=== PATIENT | male | born 1950 | race Caucasian/White ===

== ENCOUNTER 2018-07-30 08:21 | Day surgery (SDC) | payer MEDICARE, OTHER, SELFPAY ==
[2018-07-30] MEDS ORDERED: DIPRIVAN 200 MG/20 ML IV ONE (08:22)
[2018-07-30] MEDS ORDERED: Depo-Medrol 40 MG/ML IM ONE (08:22)
[2018-07-30] MEDS ORDERED: Xylocaine-Mpf 2% 5 Ml Vial IJ ONE (08:22)
--- NOTE | 2018-07-30 12:15 | XRAY ---
Indication: Bilateral L4-S1 MBB. Intraoperative fluoroscopy was provided for 22 seconds. Single digital spot image submitted for interpretation demonstrates posterior spinal needle tips along the expected course of the left and right L4-S1 nerve roots. Correlate with intraoperative findings/report.
--- NOTE | 2018-07-30 14:44 | XRAY ---
22 seconds fluoroscopy time in surgery for bilateral L4-S1 MBB.
[2018-07-30] MEDS ORDERED: Lactated Ringers 1,000 ML IV ONE (14:58)
== END 2018-07-30 10:48 | disposition home or self-care (01) ==
LOC: SDC-PAIN 08:21
PROVIDERS: ATTEND Psychiatry & Neurology Pain Medicine
DX: M47.816 Spondylosis without myelopathy or radiculopathy, lumbar region (principal); M47.817 Spondylosis without myelopathy or radiculopathy, lumbosacral region; E11.9 Type 2 diabetes mellitus without complications; Z79.84 Long term (current) use of oral hypoglycemic drugs
CPT/HCPCS: 64493; 64494; 72020; 77002; 82962; 99100; J1030; J2704

== ENCOUNTER 2018-08-20 08:31 | Day surgery (SDC) | payer MEDICARE, OTHER ==
[2018-08-20] MEDS ORDERED: Xylocaine 1% Vial 30 ML PF IJ ONE (08:32)
[2018-08-20] MEDS ORDERED: Ketamine HCl 50 MG/ML IJ ONE (08:32)
[2018-08-20] MEDS ORDERED: Depo-Medrol 40 MG/ML IM ONE (08:32)
[2018-08-20] MEDS ORDERED: Marcaine 0.5% SDV 10 ML IJ ONE (08:32)
[2018-08-20] MEDS ORDERED: Sodium Chloride 0.9(Preservative Free) 10 ML IJ ONE (08:32)
[2018-08-20] MEDS ORDERED: DIPRIVAN 200 MG/20 ML IV ONE (08:32)
--- NOTE | 2018-08-20 12:11 | XRAY ---
34 seconds fluoroscopy time in surgery for right L4-S1 TREY and right S-I joint injection.
--- NOTE | 2018-08-20 12:35 | XRAY ---
Indication: Right L4-S1 TREY. Intraoperative fluoroscopy was provided for 14 seconds. 2 digital spot images submitted for interpretation demonstrates posterior spinal needle tip projecting over the expected course the right L5 nerve root. Small amount of contrast injected for needle tip placement. Correlate with intraoperative findings/report.
--- NOTE | 2018-08-20 14:10 | XRAY ---
34 seconds fluoroscopy time in surgery for right L4-S1 TREY and right S-I joint injection.
[2018-08-20] MEDS ORDERED: Lactated Ringers 1,000 ML IV ONE (14:28)
--- NOTE | 2018-08-25 09:43 | XRAY ---
Indication: Right SI joint injection. Intraoperative fluoroscopy was provided for 14 seconds. 2 digital spot images submitted for interpretation demonstrates posterior spinal needle tip projecting over the inferior right SI joint. Small amount of contrast injected for needle tip placement. Correlate with intraoperative findings/report.
== END 2018-08-20 11:12 | disposition home or self-care (01) ==
LOC: SDC-PAIN 08:31
PROVIDERS: ATTEND Psychiatry & Neurology Pain Medicine
DX: M54.16 Radiculopathy, lumbar region (principal); M53.3 Sacrococcygeal disorders, not elsewhere classified; E11.9 Type 2 diabetes mellitus without complications; G62.9 Polyneuropathy, unspecified; Z79.899 Other long term (current) drug therapy
CPT/HCPCS: 64483; 64484; 72020; 72202; 77002; 82962; G0260; 27096; 99100; J1030; J2001; J2704; Q9966

== ENCOUNTER 2018-09-24 07:52 | Day surgery (SDC) | payer MEDICARE, OTHER ==
[2018-09-24] MEDS ORDERED: Ketamine HCl 50 MG/ML IJ ONE (07:53)
[2018-09-24] MEDS ORDERED: Depo-Medrol 40 MG/ML IM ONE (07:53)
[2018-09-24] MEDS ORDERED: Marcaine 0.5% SDV 10 ML IJ ONE (07:53)
[2018-09-24] MEDS ORDERED: DIPRIVAN 200 MG/20 ML IV ONE (07:53)
--- NOTE | 2018-09-24 11:15 | XRAY ---
Indication: Bilateral L4-S1 MBB. Intraoperative fluoroscopy was provided for 21 seconds. Single digital spot image submitted for interpretation demonstrates posterior needle tips projecting over the expected course of the left and right L4-S1 nerve roots. Correlate with intraoperative findings/report.
--- NOTE | 2018-09-24 11:27 | XRAY ---
21 seconds fluoroscopy time in surgery for bilateral L4-S1 MBB.
[2018-09-24] MEDS ORDERED: Lactated Ringers 2,000 ML IV ONE (13:02)
== END 2018-09-24 10:31 | disposition home or self-care (01) ==
LOC: SDC-PAIN 07:52
PROVIDERS: ATTEND Psychiatry & Neurology Pain Medicine
DX: M47.816 Spondylosis without myelopathy or radiculopathy, lumbar region (principal); Z79.899 Other long term (current) drug therapy; E11.9 Type 2 diabetes mellitus without complications; C61 Malignant neoplasm of prostate; G62.9 Polyneuropathy, unspecified
CPT/HCPCS: 72020; 77002; J1030; J2704

== ENCOUNTER 2019-05-13 10:14 | Day surgery (SDC) | payer MEDICARE, OTHER ==
[2019-05-13] MEDS ORDERED: Depo-Medrol 40 MG/ML IM ONE (10:15)
[2019-05-13] MEDS ORDERED: Marcaine 0.5% SDV 10 ML IJ ONE (10:15)
[2019-05-13] MEDS ORDERED: Ketamine HCl 50 MG/ML ONE (11:39)
[2019-05-13] MEDS ORDERED: DIPRIVAN 200 MG/20 ML IV ONE (11:39)
--- NOTE | 2019-05-13 12:49 | XRAY ---
Indication: Right shoulder injection. Intraoperative fluoroscopy was provided for 7 seconds. Single digital spot image submitted for interpretation demonstrates needle tip projecting over the right superior glenohumeral joint. Small amount of contrast injected for needle tip placement. Correlated with intraoperative findings/report.
--- NOTE | 2019-05-13 12:52 | XRAY ---
7 seconds fluoroscopy time in surgery for right intra-articular shoulder injection.
[2019-05-13] MEDS ORDERED: Lactated Ringers 1,000 ML IV ONE (18:21)
== END 2019-05-13 12:08 | disposition home or self-care (01) ==
LOC: SDC-PAIN 10:14
PROVIDERS: ATTEND Psychiatry & Neurology Pain Medicine
DX: M19.011 Primary osteoarthritis, right shoulder (principal); E11.9 Type 2 diabetes mellitus without complications; G62.9 Polyneuropathy, unspecified; Z79.899 Other long term (current) drug therapy
CPT/HCPCS: 20610; 73030; 77002; 82962; J1030; J2704; Q9966

== ENCOUNTER 2019-08-05 07:31 | Day surgery (SDC) | payer MEDICARE, OTHER ==
[2019-08-05] MEDS ORDERED: Marcaine 0.5% SDV 10 ML IJ ONE (07:32)
[2019-08-05] MEDS ORDERED: DIPRIVAN 200 MG/20 ML IV ONE (09:30)
[2019-08-05] MEDS ORDERED: Ketamine HCl 50 MG/ML ONE (09:30)
--- NOTE | 2019-08-05 11:49 | XRAY ---
Indication: Bilateral L3-S1 MBB. Intraoperative fluoroscopy was provided for 11 seconds. Single digital spot image submitted for interpretation demonstrate posterior needle tips projecting over the expected course of the left and right L3-S1 nerve roots. Correlate with intraoperative findings/report.
--- NOTE | 2019-08-05 11:58 | XRAY ---
11 seconds of fluoroscopy was used in surgery for a bilateral L3-L4, L4-L5, and L5-S1 MBB.
[2019-08-05] MEDS ORDERED: Lactated Ringers 1,000 ML IV ONE (13:08)
== END 2019-08-05 10:08 | disposition home or self-care (01) ==
LOC: SDC-PAIN 07:31
PROVIDERS: ATTEND Psychiatry & Neurology Pain Medicine
DX: M47.816 Spondylosis without myelopathy or radiculopathy, lumbar region (principal); E11.9 Type 2 diabetes mellitus without complications; G89.29 Other chronic pain; G62.9 Polyneuropathy, unspecified; Z79.899 Other long term (current) drug therapy
CPT/HCPCS: 64493; 64494; 64495; 72020; 77002; 82962; J2704

== ENCOUNTER 2019-09-09 09:19 | Emergency (ER) | payer MEDICARE, OTHER ==
[~2019-09-09 09:19] MED LIST: DIPRIVAN 200 MG/20 ML IV ONE; Ketamine HCl 50 MG/ML ONE
[2019-09-09] MEDS ORDERED: Lactated Ringers 1,000 ML IV ONE (09:20)
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
[2019-09-09] MEDS ORDERED: Sodium Chloride 0.9% 1000 ML 1,000 ML IV STA (09:58)
[2019-09-09 10:16] LABS: Absolute Neutrophil Ct (ANC) 3.69 (1.4-6.9); BASOPHIL % 0.7 % (0.0-0.4); Basophil (Absolute #) 0.04 (0-0.4); Eosinophil % 2.4 % (0.00-5.0); Eosinophil (Absolute #) 0.14 (0-0.5); Hematocrit 41.9 % (42-50); Hemoglobin 14.4 gm/dl (12.5-18.0); Lymphocyte (Absolute #) 1.33 (1.0-4.6); Lymphocytes % 22.7 % (24.0-44.0); Mean Cell Volume 93.1 fl (78-100); Mean Corpuscular Hgb Concent. 34.4 g/dl (32-36); Mean Platelet Volume 9.6 fl (7.5-11.0); Monocyte (Absolute #) 0.65 (0.0-1.3); Monocytes % 11.1 % (0.0-12.0); Neutrophil % 63.1 % (36.0-66.0); Platelet Count 195 K/mm3 (150-450); Red Cell Distribution Width 12.7 % (11.5-14.0); White Blood Count 5.9 K/mm3 (4.0-10.5)
[2019-09-09 10:29] LABS: ALBUMIN 3.6 g/dL (3.5-5.0); ALKALINE PHOSPHATASE 102 U/L (38-126); ANION GAP 10.4 MEQ/L (5-15); BLOOD UREA NITROGEN 21 mg/dL (9-20); CHLORIDE 104 mmol/L (98-107); Calcium 8.9 mg/dL (8.4-10.2); Carbon Dioxide 25 mmol/L (22-30); Creatinine 1 0.56 mg/dL (0.66-1.25); Glucose 270 mg/dL (74-106); MAGNESIUM 1.5 mg/dL (1.6-2.3); Potassium 4.2 mmol/L (3.5-5.1); SGOT/AST 22 U/L (17-59); SGPT/ALT 18 U/L (0-50); SODIUM 134 mmol/L (137-145); Total Protein 6.9 g/dL (6.3-8.2)
[2019-09-09 10:51] VITALS: O2SAT 97
[2019-09-09 10:52] LABS: Appearance CLEAR (CLEAR); Bilirubin NEGATIVE (NEGATIVE); Blood NEGATIVE Ery/ul (0-5); Glucose >=500 mg/dL (NEGATIVE); Ketones NEGATIVE (NEGATIVE); Leukocyte Esterase NEGATIVE (NEGATIVE); Nitrite NEGATIVE (NEGATIVE); Protein,Urine Dip NEGATIVE (Negative); Specific Gravity 1.009 (1.005-1.025); Urobilinogen NEGATIVE mg/dL (0-1)
--- NOTE | 2019-09-09 11:07 | XRAY ---
Indication: Cough. Pneumonia. Comparison: April 25, 2015. Portable chest remains clear. Heart is not enlarged. Bony thorax intact again with mild osteopenia, degenerative changes, old right 6 rib fracture, and tiny metallic foreign body overlying left mid chest. Impression: Continued nonacute chest with chronic features.
[2019-09-09] MEDS ORDERED: Magnesium 1 Gm / 100 Ml D5W*** 100 ML IV ONE ×2 (11:08→12:10)
[2019-09-09] MEDS: Magnesium 1 Gm / 100 Ml D5W*** 100 ML IV SCH ×2 (11:17→12:10)
[2019-09-09 12:15] VITALS: BP 132/82; PULSE 95
[2019-09-09] MEDS ORDERED: Glucophage 500 MG PO SCH (17:00)
[2019-09-10] MEDS ORDERED: Micronase 5 MG PO SCH (08:00)
== END 2019-09-09 12:52 | disposition home or self-care (01) ==
LOC: EDSTATUS 09:19 → ED 09:19
DX: E78.1 Pure hyperglyceridemia (principal); E83.42 Hypomagnesemia; N28.9 Disorder of kidney and ureter, unspecified; Z53.8 Procedure and treatment not carried out for other reasons; Z79.84 Long term (current) use of oral hypoglycemic drugs; Z79.899 Other long term (current) drug therapy; Z79.4 Long term (current) use of insulin; Z79.891 Long term (current) use of opiate analgesic
CPT/HCPCS: 36415; 71045; 80053; 81001; 82947; 82962; 83735; 84484; 85025; 93005; 93041; 94760; 99284; J2704; J3475; A9270-GY

== ENCOUNTER 2021-02-08 10:13 | Day surgery (SDC) | payer MEDICARE | END 2021-02-08 10:55 | disposition home or self-care (01) | LOC: SDC-PAIN 10:13 | PROVIDERS: ATTEND Psychiatry & Neurology Pain Medicine | DX: Z53.09 Procedure and treatment not carried out because of other contraindication (principal); E11.9 Type 2 diabetes mellitus without complications; Z79.899 Other long term (current) drug therapy | CPT/HCPCS: 82947 ==

== ENCOUNTER 2022-09-03 22:36 | Emergency (ER) | payer MEDICARE ==
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
[2022-09-04] MEDS ORDERED: ROCEPHIN 1 Gm-D5w 50 ml Bag** 1 G/50 ML IVPB IV STA (00:36)
[2022-09-04] MEDS ORDERED: ROCEPHIN 1 Gm-D5w 50 ml Bag** 1 G/50 ML IVPB IV ONE (00:38)
[2022-09-04] MEDS ORDERED: Sodium Chloride 0.9% 1000 ML 1,000 ML ONE (00:38)
[2022-09-04] MEDS ORDERED: Sodium Chloride 0.9% 1000 ML 1,000 ML IV SCH (00:45)
[2022-09-04 01:31] LABS: Absolute Neutrophil Ct (ANC) 5.98 x10^3/uL (1.4-6.9); BASOPHIL % 0.5 % (0.0-0.4); Basophil (Absolute #) 0.05 x10^3/uL (0-0.4); Eosinophil % 3.1 % (0.00-5.0); Eosinophil (Absolute #) 0.28 x10^3/uL (0-0.5); Hematocrit 41.7 % (42-50); IMMATURE GRAN # 0.03 x10^3u/L (0.00-0.03); IMMATURE GRAN % 0.3 % (0.00-0.4); Lymphocyte (Absolute #) 1.91 x10^3/uL (1.0-4.6); Mean Cell Volume 92.3 fL (78-100); Mean Corpuscular Hgb Concent. 33.6 g/dL (32-36); Mean Platelet Volume 9.9 fL (7.5-11.0); Monocyte (Absolute #) 0.86 x10^3/uL (0.0-1.3); Monocytes % 9.4 % (0.0-12.0); Neutrophil % 65.7 % (36.0-66.0); Platelet Count 262 x10^3/uL (150-450); Red Blood Count 4.52 x10^6/uL (4.1-5.6); Red Cell Distribution Width 13.2 % (11.5-14.0); White Blood Count 9.1 x10^3/uL (4.0-10.5)
[2022-09-04] MEDS ORDERED: Sodium Chloride 0.9% 1000 ML 1,000 ML IV STA (01:35)
[2022-09-04 01:36] LABS: Appearance Turbid (Clear); Bacteria Many /HPF (None Seen); Bilirubin Negative (Negative); Blood Moderate (Negative); Glucose, Urine Negative (Negative); Ketones Negative (Negative); Leukocyte Esterase Large (Negative); Nitrite Positive (Negative); Protein,Urine Dip 100 (Negative); RBC >100 /HPF (0-5); Urobilinogen 0.2 mg/dL (0.2)
[2022-09-04 01:37] LABS: ADD URINE CULTURE? ORDERED SEPARATELY (NO); Budding Yeast Moderate /HPF (None Seen); Epithelial Cells Few /HPF (None Seen); Hyaline Casts None Seen /LPF (0-2); WBC 51-100 /HPF (0-5)
[2022-09-04 01:49] LABS: ALBUMIN 3.5 g/dL (3.5-5.0); ALKALINE PHOSPHATASE 71 U/L (38-126); ANION GAP 18.9 MEQ/L (5-15); BLOOD UREA NITROGEN 21 mg/dL (9-20); CHLORIDE 101 mmol/L (98-107); Calcium 8.8 mg/dL (8.4-10.2); Carbon Dioxide 19 mmol/L (22-30); Creatinine 1 0.73 mg/dL (0.66-1.25); EST GLOMERULAR FILTRATION RATE > 60.0 ML/MIN; Glucose 160 mg/dL (74-106); Potassium 4.5 mmol/L (3.5-5.1); SGOT/AST 22 U/L (17-59); SGPT/ALT 16 U/L (0-50); SODIUM 134 mmol/L (137-145)
[2022-09-04 02:04] VITALS: BP 108/62
[2022-09-04 03:43] VITALS: PULSE 91; O2SAT 97
== END 2022-09-04 03:43 | disposition home or self-care (01) ==
LOC: ED 22:36
DX: N39.0 Urinary tract infection, site not specified (principal); E11.9 Type 2 diabetes mellitus without complications; Z79.4 Long term (current) use of insulin; Z79.84 Long term (current) use of oral hypoglycemic drugs; Z79.891 Long term (current) use of opiate analgesic
CPT/HCPCS: 36000; 36415; 80053; 81001; 83605; 85025; 87070; 87077; 87086; 87186; 99284; J0696

== ENCOUNTER 2022-09-19 09:14 | Day surgery (SDC) | payer MEDICARE ==
[2022-09-19] MEDS ORDERED: LIDOCAINE HCL 1% 50 MG/5 ML VL PF IJ ONE (09:15)
[2022-09-19] MEDS ORDERED: BUPIVACAINE 0.5% VIAL IJ ONE (09:15)
[2022-09-19] MEDS ORDERED: DIPRIVAN 200 MG/20 ML IV ONE (10:16)
[2022-09-19] MEDS ORDERED: Lactated Ringers 1,000 ML IV ONE (10:42)
--- NOTE | 2022-09-19 11:53 | XRAY ---
26 seconds of fluoroscopy was used in surgery for a left L3-S1 RFA.
--- NOTE | 2022-09-19 11:57 | XRAY ---
Indication: Left L3-S1 RFA. Intraoperative fluoroscopy provided for 26 seconds. 3 digital spot image submitted for interpretation demonstrates posterior needle tips projecting over the expected left L3-S1 nerve roots. Correlate with intraoperative findings/report.
== END 2022-09-19 10:55 | disposition home or self-care (01) ==
LOC: SDC-PAIN 09:14
PROVIDERS: ATTEND Psychiatry & Neurology Pain Medicine
DX: M47.816 Spondylosis without myelopathy or radiculopathy, lumbar region (principal); E11.9 Type 2 diabetes mellitus without complications; Z79.899 Other long term (current) drug therapy
CPT/HCPCS: 64635; 64636; 72100; 77002; 82947; 99100; J2001; J2704

== ENCOUNTER 2022-09-26 08:56 | Day surgery (SDC) | payer MEDICARE ==
[2022-09-26] MEDS ORDERED: BUPIVACAINE 0.5% VIAL IJ ONE (08:57)
[2022-09-26] MEDS ORDERED: LIDOCAINE HCL 1% 50 MG/5 ML VL PF IJ ONE (08:57)
[2022-09-26] MEDS ORDERED: DIPRIVAN 200 MG/20 ML IV ONE (10:27)
--- NOTE | 2022-09-26 12:18 | XRAY ---
Indication: Right L3-S1 RFA. Intraoperative fluoroscopy provided for 33 seconds. 4 digital spot image submitted for interpretation demonstrates posterior needle tips projecting over the expected right L3-S1 nerve roots. Correlate with intraoperative findings/report.
--- NOTE | 2022-09-26 12:45 | XRAY ---
33 seconds of fluoroscopy was used in surgery for a right L3-S1 RFA.
[2022-09-26] MEDS ORDERED: Lactated Ringers 1,000 ML IV ONE (13:16)
== END 2022-09-26 11:15 | disposition home or self-care (01) ==
LOC: SDC-PAIN 08:56
PROVIDERS: ATTEND Psychiatry & Neurology Pain Medicine
DX: M47.816 Spondylosis without myelopathy or radiculopathy, lumbar region (principal); E11.9 Type 2 diabetes mellitus without complications; Z79.899 Other long term (current) drug therapy
CPT/HCPCS: 64635; 64636; 72100; 77002; 82947; 99100; J2001; J2704

== ENCOUNTER 2022-10-31 10:18 | Day surgery (SDC) | payer MEDICARE ==
[2022-10-31] MEDS ORDERED: BUPIVACAINE 0.5% VIAL IJ ONE (10:19)
[2022-10-31] MEDS ORDERED: Depo-Medrol 40 MG/ML IM ONE (10:19)
[2022-10-31] MEDS ORDERED: DIPRIVAN 200 MG/20 ML IV ONE (11:22)
[2022-10-31] MEDS ORDERED: Lactated Ringers 1,000 ML IV ONE (11:56)
--- NOTE | 2022-10-31 18:16 | XRAY ---
Indication: Bilateral SI joint injection. Intraoperative fluoroscopy provided for 16 seconds. 4 digital spot image submitted for interpretation demonstrates posterior needle tip projecting over the left and right SI joint. Correlate with intraoperative findings/report.
--- NOTE | 2022-10-31 19:01 | XRAY ---
16 seconds of fluoroscopy was used in surgery for bilateral SI joint injections.
== END 2022-10-31 12:00 | disposition home or self-care (01) ==
LOC: SDC-PAIN 10:18
PROVIDERS: ATTEND Psychiatry & Neurology Pain Medicine
DX: M19.032 Primary osteoarthritis, left wrist (principal); M46.1 Sacroiliitis, not elsewhere classified; E11.9 Type 2 diabetes mellitus without complications; Z79.899 Other long term (current) drug therapy
CPT/HCPCS: 01992; 20610; 27096; 72202; 77002; 82947; 99100; G0260; J1030; J2704

== ENCOUNTER 2022-11-19 20:59 | Emergency (ER) | payer MEDICARE ==
[2022-11-19 22:15] VITALS: PULSE 116; O2SAT 98
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
[2022-11-20 01:04] LABS: Appearance Turbid (Clear); Bacteria Rare /HPF (None Seen); Bilirubin Negative (Negative); Blood Large (Negative); Epithelial Cells None Seen /HPF (None Seen); Glucose, Urine 500 mg/dL (Negative); Hyaline Casts NONE SEEN /LPF (0-2); Ketones Negative (Negative); Leukocyte Esterase Moderate (Negative); Nitrite Negative (Negative); Ph 5.5 (4.6-8.0); Protein,Urine Dip 100 (Negative); RBC >100 /HPF (0-5); Specific Gravity 1.025 (1.005-1.030); Urobilinogen 0.2 mg/dL (0.2); WBC >100 /HPF (0-5)
[2022-11-20 01:40] LABS: Budding Yeast Many /HPF (None Seen)
[2022-11-20 01:41] LABS: ADD URINE CULTURE? YES (NO)
== END 2022-11-19 22:56 | disposition home or self-care (01) ==
LOC: ED 20:59
DX: T83.098A Other mechanical complication of other urinary catheter, initial encounter (principal); N39.0 Urinary tract infection, site not specified; R10.2 Pelvic and perineal pain; E11.9 Type 2 diabetes mellitus without complications; Z79.4 Long term (current) use of insulin; Z79.84 Long term (current) use of oral hypoglycemic drugs; Z79.891 Long term (current) use of opiate analgesic
CPT/HCPCS: 81001; 87077; 87086; 87186; 99282

== ENCOUNTER 2023-02-21 20:09 | Emergency (ER) | payer MEDICARE ==
[2023-02-21 20:15] VITALS: TEMP 97.7
[2023-02-21] MEDS ORDERED: DUONEB 0.5-3 MG/3 ml Neb IH ONE ×2 (20:34→21:09)
[2023-02-21 21:30] LABS: Absolute Neutrophil Ct (ANC) 8.94 x10^3/uL (1.4-6.9); BASOPHIL % 0.3 % (0.0-0.4); Basophil (Absolute #) 0.03 x10^3/uL (0-0.4); Eosinophil % 0.1 % (0.00-5.0); Eosinophil (Absolute #) 0.01 x10^3/uL (0-0.5); Hematocrit 48.3 % (42-50); Hemoglobin 14.9 g/dL (12.5-18.0); IMMATURE GRAN # 0.07 x10^3u/L (0.00-0.03); IMMATURE GRAN % 0.6 % (0.00-0.4); Lymphocyte (Absolute #) 0.96 x10^3/uL (1.0-4.6); Lymphocytes % 8.5 % (24.0-44.0); Mean Cell Volume 100.4 fL (78-100); Mean Corpuscular Hgb Concent. 30.8 g/dL (32-36); Mean Platelet Volume 11.2 fL (7.5-11.0); Monocyte (Absolute #) 1.28 x10^3/uL (0.0-1.3); Monocytes % 11.3 % (0.0-12.0); NUCLEATED RBC # 0.03 x10^3u/L (0.00-0.01); NUCLEATED RBC % 0.3 % (0.00-0.1); Neutrophil % 79.2 % (36.0-66.0); Platelet Count 100 x10^3/uL (150-450); Red Blood Count 4.81 x10^6/uL (4.1-5.6); Red Cell Distribution Width 15.2 % (11.5-14.0); White Blood Count 11.3 x10^3/uL (4.0-10.5)
[2023-02-21] MEDS ORDERED: Sodium Chloride 0.9% 1000 ML 1,000 ML IV STA (21:55)
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
[2023-02-21 22:07] LABS: ALBUMIN 3.5 g/dL (3.5-5.0); ALKALINE PHOSPHATASE 264 U/L (38-126); ANION GAP 24.8 MEQ/L (5-15); BLOOD UREA NITROGEN 28 mg/dL (9-20); CHLORIDE 102 mmol/L (98-107); Calcium 8.6 mg/dL (8.4-10.2); Creatinine 1 0.97 mg/dL (0.66-1.25); EST GLOMERULAR FILTRATION RATE > 60.0 ML/MIN; Glucose 198 mg/dL (74-106); NT PRO BNPII 15800 pg/mL (<300); PROCALCITONIN 0.179 ng/mL (0.030-0.080); Potassium 5.3 mmol/L (3.5-5.1); SGPT/ALT 667 U/L (0-50); SODIUM 131 mmol/L (137-145); Total Protein 7.1 g/dL (6.3-8.2)
[2023-02-21 22:10] LABS: Carbon Dioxide 10 mmol/L (22-30)
[2023-02-21 22:13] LABS: SGOT/AST 1316 U/L (17-59)
[2023-02-21] MEDS ORDERED: PIPERACILLIN/TAZOBACTAM 3.375 GM in Sodium Chloride 100ML MINI-BAG PLUS 100 ML IV ONE (22:17)
[2023-02-21] MEDS ORDERED: SUBLIMAZE 100 MCG/2 ML IV ONE (22:22)
[2023-02-21] MEDS ORDERED: Zofran 4 MG/2 ML VIAL IV ONE (22:22)
[2023-02-21] MEDS ORDERED: Zofran 4 MG/2 ML VIAL ONE (22:24)
[2023-02-21] MEDS ORDERED: SUBLIMAZE 100 MCG/2 ML ONE (22:24)
[2023-02-21] MEDS ORDERED: Sodium Chloride 100ML MINI-BAG PLUS 100 ML IV ONE (23:16)
[2023-02-21] MEDS ORDERED: Sodium Chloride 0.9% 1000 ML 1,000 ML ONE (23:16)
[2023-02-21] MEDS ORDERED: PIPERACILLIN/TAZOBACTAM IV ONE (23:16)
[2023-02-21 23:47] LABS: Appearance Turbid (Clear); Bacteria Many /HPF (None Seen); Bilirubin Moderate (Negative); Blood Large (Negative); Epithelial Cells None Seen /HPF (None Seen); Glucose, Urine 100 mg/dL (Negative); Ketones Negative (Negative); Leukocyte Esterase Moderate (Negative); Nitrite Positive (Negative); Ph 5.5 (4.6-8.0); Protein,Urine Dip 300 (Negative); RBC >100 /HPF (0-5); Specific Gravity >=1.030 (1.005-1.030); WBC >100 /HPF (0-5)
--- NOTE | 2023-02-21 23:52 | XRAY ---
CLINICAL HISTORY:gen weakness. abd pain COMPARISON:None. TECHNIQUE:Contiguous axial CT images of the chest were acquired without administration of intravenous contrast. Coronal and sagittal reconstructions were also obtained. FINDINGS: There is bilateral pleural effusion with atelectasis of the adjacent lung segments. There is thickening of the bilateral oblique fissures, likely due to seepage of fluid. At least two solid nodules are seen at the apicoposterior segment of the left upper lobe, adjacent to the oblique fissure measuring 3.0 mm each. A subsolid nodule is also seen at the superior segment of the left upper lobe measuring 5.0 mm. There are calcified nodules at the anterior and posterior segments of the right upper lobe measuring 6.0 mm and 4.3 mm, respectively. The scanned pulmonary parenchyma shows no definite consolidative lesions. No free or encysted pleural effusion. Heart size is enlarged. There is no pericardial effusion. Atherosclerotic aorta and its branches, as well as the coronary arteries. No pathologically enlarged mediastinal, hilar or axillary lymph node is identified. There are small calcified mediastinal and right hilar lymph nodes. There is subcutaneous edema of the anterior chest wall. Tiny calcifications are scattered in the spleen. There is generalized reduced bone density. Osteophytes are seen along the anterior endplates of the vertebrae. IMPRESSION: 1. Bilateral pleural effusion with atelectasis of adjacent lung segments. 2. Two solid pulmonary nodules at the apicoposterior segment of the left upper lobe, adjacent to the oblique fissure measuring 3.0 mm each. A 5.0 mm subsolid nodule at the superior segment of the left upper lobe measuring 5.0 mm. LUNG-RADS II. Follow up CT scan at 12 months is recommended. 3. Calcified nodules in the right lung, likely granulomas. 4. Cardiomegaly. 5. Calcified right hilar and mediastinal lymph nodes. Electronically Signed by: Fabian Bey MD. 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
[2023-02-21 23:57] LABS: VBG BASE EXCESS -13.2 (-2.0-2.0); VBG CARBOXYHEMOGLOBIN 5.5 % T HGB (0.0-6.9); VBG HCO3- 12.1 meq/L (22-28); VBG HEMOGLOBIN 15.5; VBG O2 SATURATION 73.5 (95-100); VBG POTASSIUM 5.6 (3.5-5.1); VBG pH 7.26 (7.32-7.42)
[2023-02-22] MEDS ORDERED: Sodium Chloride 0.9% 1000 ML 1,000 ML IV STA ×2 (00:07→04:08)
[2023-02-22] MEDS ORDERED: MYXREDLIN 100 UNIT/100 ML BAG 100 UNIT/100 ML PLAST..BAG IV PRN (00:07)
[2023-02-22 00:09] LABS: ADD URINE CULTURE? YES (NO)
--- NOTE | 2023-02-22 00:22 | XRAY ---
CLINICAL HISTORY:gen weakness. abd pain COMPARISON:None. TECHNIQUE:CT scan of the abdomen and pelvis was performed without IV contrast. Coronal and sagittal reconstructive images were also obtained. FINDINGS: Abdomen: Motion artifacts are present. The liver is normal in size measuring 15.8 cm craniocaudally. No diffuse or focal parenchymal abnormality. The portal vein, intrahepatic biliary radicals, and the bile ducts are normal. The spleen is normal in size. Multiple tiny calcifications are scattered within its parenchyma. There is fatty atrophy of the pancreas. The adrenal glands are unremarkable. The kidneys are normal in size and shape. No cysts, mass, calculi or hydronephrosis. There is bilateral perinephric fat strandings with thickened bilateral lateral conal fascia. The gallbladder is absent, with surgical clips in the gallbladder fossa. The ascending colon, the transverse colon, the descending colon, visualized small bowel loops are unremarkable. There is no evidence of significant enlargement of the mesenteric or retroperitoneal lymph nodes. Atherosclerotic aorta and some of its branches. There is subcutaneous edema in the anterior abdominal wells. Pelvis: There is minimal fluid in the pelvic cavity. The urinary bladder is underfilled with an indwelling odom catheter. Air pockets are seen, likely iatrogenic. The prostate gland is normal. The pelvic vasculature is unremarkable. No evidence of pelvic lymphadenopathy. Osteophytes are notes along the anterior endplates of the vertebrae. There is multilevel intervertebral disc narrowing. Radio-opacities are seen in the L1 vertebral body, which may represent orthopedic hardware. The rest of the osseous structures in the pelvis, lower rib cage and lumbar spine show no abnormality. Bilateral moderate volume pleural effusions. IMPRESSION: 1. Multiple tiny splenic calcifications. 2. Non-specific bilateral perinephric fat strandings and thickened lateroconal fascia. 3. Minimal pelvic ascites. 4. Degenerative osseous and disc changes. Electronically Signed by: Fabian Bey MD. 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
[2023-02-22] MEDS ORDERED: Sodium Chloride 0.9% 1000 ML 1,000 ML ONE (00:52)
[2023-02-22 04:07] VITALS: BP 127/68; PULSE 125; RESP 28; O2SAT 94
--- NOTE | 2023-02-22 09:16 | XRAY ---
Indication: General weakness. Comparison: October 05, 2022 Portable chest demonstrates new cardiomegaly, central vascular congestion, and small bibasilar effusions favoring cardiac decompensation/CHF. Superimposed pneumonia not completely excluded. Bony thorax intact again with osteopenia and mild degenerative changes.
--- NOTE | 2023-02-22 09:18 | XRAY ---
Indication: Pain and weakness. Comparison: October 10, 2021 Single AP right hip again demonstrates osteopenia and total hip arthroplasty with intact bipolar prosthesis. No other bony, articular, or soft tissue abnormalities.
== END 2023-02-22 01:45 | disposition short-term general hospital (02) ==
LOC: ED 20:09
DX: A41.9 Sepsis, unspecified organism (principal); N10 Acute pyelonephritis; R65.20 Severe sepsis without septic shock; K72.00 Acute and subacute hepatic failure without coma; E87.20 Acidosis, unspecified; J90 Pleural effusion, not elsewhere classified; R53.83 Other fatigue; R06.02 Shortness of breath; R05.9 Cough, unspecified; E11.9 Type 2 diabetes mellitus without complications; Z79.4 Long term (current) use of insulin; Z79.84 Long term (current) use of oral hypoglycemic drugs; Z79.899 Other long term (current) drug therapy
CPT/HCPCS: 36000; 36415; 71045; 71250; 73501; 74176; 80053; 81001; 82805; 83605; 83735; 83880; 84145; 84484; 85025; 87040; 87077; 87086; 87186; 93005; 93041; 94640; 96360; 96361; 96365; 96374; 99285; 99291; J2405; J3010; A9270-GY